=== PATIENT | male | born 1990 | race African-American/Black ===

== ENCOUNTER 2018-08-10 03:33 | Emergency (ER) | payer SELFPAY ==
[2018-08-10] MEDS ORDERED: Ketorolac Tromethamine 30 MG/ML VIAL ONE (03:49)
== END 2018-08-10 08:30 | disposition home or self-care (01) ==
LOC: SCSER 03:33
DX: H66.91 Otitis media, unspecified, right ear (principal)
CPT/HCPCS: 96372; J1885